=== PATIENT | male | born 1955 | race Caucasian/White ===

== ENCOUNTER 2018-01-16 21:58 | Inpatient (IN) | payer OTHER ==
[2018-01-16 22:38] LABS: Lactate 1.37 mmol/L (0.50-2.20)
[2018-01-16] MEDS ORDERED: Piperacillin/Tazobactam 3.375 GM VIAL ONE (22:41)
[2018-01-16 22:43] LABS: #Eosinphils 0.1 thou/uL (0.0-0.7); #Lymphocytes 0.4 thou/uL (1.20-3.40); #Monocytes 0.7 thou/uL (0.11-0.59); #Neutrophils 11.9 thou/uL (1.40-6.50); %Basophils 0.1 % (0.0-1.0); %Eosinophils 0.5 % (0.0-10.0); %Lymphocytes 2.9 % (21.0-51.0); %Monocytes 5.6 % (0.0-10.0); %Neutrophils 90.9 % (42.0-75.0); Hemoglobin 16.5 g/dL (14.0-18.0); Mean Corpuscular HGB CONC 34.6 g/dL (32.0-36.0); Mean Corpuscular Volume 89.8 fL (78.0-98.0); Platelet Count 234 thou/uL (130-400); RBC Distribution Width 12.3 % (11.5-14.5); White Blood Cell (WBC) Count 13.1 thou/uL (4.8-10.8)
[2018-01-16] MEDS ORDERED: MEROPENEM 1 GM/50 ML 1 GM in Premix Bag 1 BAG IVPB SCH (22:45)
[2018-01-16 23:01] LABS: ALT (SGPT) 20 U/L (8-55); AST (SGOT) 24 U/L (5-34); Albumin 4.3 g/dL (3.4-4.8); Alkaline Phosphatase 80 U/L (40-150); Anion Gap 12 mmol/L (10-20); BUN (Urea Nitrogen) 13 mg/dL (8.4-25.7); Bilirubin, Total 0.5 mg/dL (0.2-1.2); Calc. Creatinine Clearance 0 mL/min (70-130); Calcium 9.1 mg/dL (7.8-10.44); Carbon Dioxide 23 mmol/L (23-31); Chloride 102 mmol/L (98-107); Estimated GFR-MDRD 80; Glucose 105 mg/dL (80-115); Potassium 3.7 mmol/L (3.5-5.1); Protein, Total 7.3 g/dL (5.8-8.1); Sodium 133 mmol/L (136-145)
[2018-01-16 23:55] LABS: Bilirubin Negative (Negative); Blood, Urine Negative (Negative); Clarity CLEAR (Clear); Glucose, Urine (Dipstick) Negative (Negative); Leukocyte Trace (Negative); Nitrite Negative (Negative); Protein, Urine (Dipstick) Negative (Neg-Trace); Specific Gravity, Urine 1.017 (1.002-1.036); Urobilinogen 0.2 mg/dL (0.2-1.0); pH, Urine 6.5 (5.0-9.0)
[2018-01-16 23:57] LABS: Bacteria/HPF None Seen HPF (None Seen); Hyaline Casts/LPF 0-3 HYALINE CAST LPF (0-3 Hyaline); Squamous Epithelial None Seen HPF (0-3); WBC/HPF 0-3 HPF (0-3)
[2018-01-17 03:43] VITALS: BMI 26.3
[2018-01-17] MEDS ORDERED: Acetaminophen 325 MG TAB PO PRN ×2 (04:02→06:58)
[2018-01-17] MEDS ORDERED: Ondansetron ODT 4 MG TAB SL PRN (04:02)
[2018-01-17] MEDS ORDERED: Ondansetron PF 4 MG/2 ML Vial IVP PRN ×2 (04:02→06:58)
[2018-01-17] MEDS ORDERED: Sodium Chloride 0.9% 1,000 ML IV SCH (04:15)
[2018-01-17] MEDS ORDERED: Bisacodyl 10 MG SUPP PR PRN (06:58)
[2018-01-17] MEDS ORDERED: Diabetic Tussin 200 MG/10 ML UDCUP PO PRN (06:58)
[2018-01-17] MEDS ORDERED: Calcium Carbonate 500 MG ChewTAB PO PRN (06:58)
[2018-01-17] MEDS ORDERED: Bisacodyl 5 MG TAB PO PRN (06:58)
[2018-01-17] MEDS ORDERED: Loperamide HCl 2 MG CAP PO PRN (06:58)
[2018-01-17] MEDS ORDERED: Ondansetron ODT 4 MG TAB PO PRN (06:58)
[2018-01-17] MEDS ORDERED: Senokot S 8.6-50 MG TAB PO PRN (06:58)
[2018-01-17] MEDS ORDERED: hydrALAZINE 20 MG/ML VIAL SLOW IVP PRN (06:58)
[2018-01-17] MEDS ORDERED: HYDROcodone/Acetaminophen 5/325 mg Tablet PO PRN (06:58)
[2018-01-17] MEDS ORDERED: Sodium Chloride 0.65% Nasal 44 ML BOT EA NARE PRN (06:58)
[2018-01-17] MEDS ORDERED: Zolpidem Tartrate 5 MG TAB PO PRN (06:58)
[2018-01-17] MEDS ORDERED: Artificial Tears 18 DROP/0.9 ML EA EYE PRN (06:58)
[2018-01-17] MEDS ORDERED: Eucerin (Mineral Oil/Petrolatum,White) 30 gm Jar TOP PRN (06:58)
[2018-01-17] MEDS ORDERED: Cepastat Lozenges 1 LOZ PO PRN (06:58)
[2018-01-17] MEDS ORDERED: Loratadine 10 MG TAB PO PRN (06:58)
[2018-01-17] MEDS ORDERED: cefTRIAXone\\ROCEPHIN 2 GM in Sodium Chloride 0.9% 100 ML IVPB SCH (08:00)
[2018-01-17] MEDS: Saccharomyces boulardii 250 MG CAP PO SCH (08:48)
[2018-01-17] MEDS: Enoxaparin Sodium 40 MG/0.4 ML SYRINGE SC SCH (08:48)
[2018-01-17] MEDS: Famotidine 20 MG TAB PO SCH ×2 (08:48→20:52)
[2018-01-17] MEDS: Sodium Chloride 0.9% 1,000 ML IV SCH ×3 (08:50→22:51)
--- NOTE | 2018-01-17 10:53 | HP ---
PRIMARY CARE PHYSICIAN: [facility] Call Admission. REASON FOR ADMISSION: Sepsis. HISTORY OF PRESENT ILLNESS: A 63-year-old male, who had a prostate biopsy yesterday morning. The patient reports that after biopsy done, he went home around 3 p.m. Initially, he was experiencing low-grade fever, but his fever was spiking continuously and around 8 p.m., the patient was having fever with chills and that is why he called Dr. English, urologist, who advised him to come to emergency room for evaluation. In the emergency room, he was tachycardic. He was relatively hypotensive and his temperature was 101.8. He was meeting sepsis criteria and that is why the patient was admitted to medical floor. In the emergency room, the patient received Tylenol, IV fluid, meropenem, and Zosyn. This morning, the patient was still febrile. He denies any constipation, diarrhea, melena, or hematochezia. He denies any currently dysuria, increased frequency, or hesitancy. The patient reports that his prostate specific antigen was increasing and that is why Dr. English decided to do prostate biopsy. Prior to prostate biopsy, the patient denies any lower urinary tract infection symptoms including he denies any dysuria, hematuria, frequency, or hesitation. He also denies any retention. REVIEW OF SYSTEMS: CONSTITUTIONAL: Negative for weight loss or gain, ability to conduct usual activities. SKIN: Negative for rash, itching. EYES: Negative for double vision, pain. ENT/MOUTH: Negative for nose bleeding, neck stiffness, pain, tenderness. CARDIOVASCULAR: Negative for palpitations, dyspnea on exertion, orthopnea. RESPIRATORY: Negative for shortness of breath, wheezing, cough, hemoptysis, fever or night sweats. GASTROINTESTINAL: Negative for poor appetite, abdominal pain, heartburn, nausea, vomiting, constipation, or diarrhea. GENITOURINARY: Negative for urgency, frequency, dysuria, nocturia. MUSCULOSKELETAL: Negative for pain, swelling. NEUROLOGIC/PSYCHIATRIC: Negative for anxiety, depression. ALLERGY/IMMUNOLOGIC: Negative for skin rash, bleeding tendency. Please see my HPI for pertinent positives and negatives. All other review of systems reviewed and negative except as mentioned in HPI. PAST MEDICAL HISTORY: History of one time admission for cellulitis. PAST SURGICAL HISTORY: Right ankle surgery and prostate biopsy. PAST PSYCHIATRIC HISTORY: Reviewed and negative. SOCIAL HISTORY: The patient denies any tobacco, alcohol, or illicit drug abuse. FAMILY HISTORY: No family history of coronary artery disease, stroke, or cancer. ALLERGIES: CIPROFLOXACIN. CURRENT HOME MEDICATIONS: The patient is taking Prilosec p.r.n. basis. EMERGENCY ROOM COURSE: The patient has received IV fluid, meropenem, Zosyn, and Tylenol. PHYSICAL EXAMINATION: VITAL SIGNS: Currently; blood pressure 101/63, temperature 100.2, pulse 80, respiratory rate 16, and saturation 93% on room air. Weight 194 pounds. In the emergency room, he had 101.4 fever and he was tachycardic. GENERAL: The patient is currently alert and awake. No obvious acute distress. HEENT: Head, normocephalic and atraumatic. Eyes, pupils round and reactive to light. Extraocular muscle intact. ENT, oropharynx within normal limits. Moist mucous membranes. No oral lesion. No pharyngeal erythema. No exudate. NECK: Supple. No JVD. No thyromegaly. No carotid bruit. No jugular venous distention. LUNGS: Clear to auscultation without any rhonchi or rales. CARDIAC: S1 and S2 regular. No murmur. No gallop. No rub. ABDOMEN: Soft. Bowel sounds present. Nontender. Nondistended. No organomegaly. No mass. No suprapubic tenderness. BACK: Unremarkable. No CVA tenderness. EXTREMITIES: Upper extremities; passive movement of all joints is normal. Lower extremity, no edema. Good distal pulsation. SKIN: No skin rash. HEMATOLOGICAL SYSTEM: No lymphadenopathy. PSYCHIATRIC: Normal affect. NEUROLOGIC: Nonfocal examination. SIGNIFICANT LABS: CBC; WBC 13.1, hemoglobin 16.5, and platelet 234 with a left shift. BMP; sodium 133, potassium 3.7, chloride 102, carbon dioxide 23, BUN 13, creatinine 0.95, glucose 105, calcium 9.1, and lactic acid 1.5. LFT; AST 24, ALT 20, alkaline phosphatase 80, and albumin 4.3. Urinalysis suggestive of UTI. Blood culture negative so far. ASSESSMENT AND PLAN: 1. Sepsis. The patient has leukocytosis, fever, tachycardia, met sepsis criteria. Source of infection is most likely lower urinary tract secondary to recent prostate biopsy suspecting transient bacteremia. 2. Lower urinary tract infections after a prostate biopsy with possible prostatitis. We are also suspecting associated transient bacteremia based on clinical presentation. We have started Rocephin 2 g IV daily. We will follow up on urine culture results. If the patient remains afebrile for next 24 hours, then we will consider changing to oral antibiotic therapy and discharging him home soon. 3. Gastroesophageal reflux disease. We will continue Pepcid 20 mg p.o. b.i.d. 4. Deep venous thrombosis prophylaxis, Lovenox 40 mg subcu daily. Gastrointestinal prophylaxis, Pepcid 20 mg p.o. b.i.d. CODE STATUS: The patient is full code. The patient does not have any surrogate decision maker. DISPOSITION PLAN: Based on clinical course. Plan of care discussed with the patient in detail. Job ID: [id number]
[2018-01-17] MEDS ORDERED: Meropenem 1 GM in Sodium Chloride 0.9% 100 ML IVPB SCH (22:00)
--- NOTE | 2018-01-17 22:24 | CON ---
DATE OF CONSULTATION: 01/17/2018 Consulting is [facility]. Consulted is Dr. English. REASON FOR CONSULTATION: Prostatitis after biopsy. HISTORY OF PRESENT ILLNESS: Mr. Bashir is a 63-year-old white male with an elevated PSA, who initially came to me for this reason. We did a prostate biopsy on him yesterday, which went uneventfully. He was covered prophylactically with Bactrim DS 1 tab 2 hours before the procedure and ceftriaxone 1000 mg at the time of his biopsy. The biopsy was uneventful and he went home. That evening, he called me and stated that he was running a fever of 102 and did not feel well. I recommended he proceed directly to the ER where, when he arrived, he was hypotensive, tachycardic, and still had a 102 fever. He was given meropenem and Zosyn in the emergency room and admitted to the Medicine Service. They have subsequently switched him to ceftriaxone and he is definitely showing improvement with defervescence of his fevers, decreased tachycardia, and he subjectively is feeling well. Thus far, his cultures have not grown anything but are currently proceeding. ALLERGIES: CIPROFLOXACIN AND FLUOROQUINOLONES. HOME MEDICATIONS: Prilosec. PAST MEDICAL HISTORY: 1. History of cellulitis. 2. Elevated PSA. 3. Dyspepsia. PAST SURGICAL HISTORY: 1. Right ankle surgery. 2. Recent prostate biopsy. FAMILY HISTORY: No significant history of prostate cancer. Denies any cardiovascular disease in the family. SOCIAL HISTORY: The patient denies tobacco, alcohol, or illicit drug use. REVIEW OF SYSTEMS: A 12-point review of system was reviewed and currently negative. The patient is no longer feeling bad. He denies any bloody stools, nausea, vomiting, chest pain, shortness of breath, fevers, or malaise. The remainder of 12-point review of systems are reviewed and negative. PHYSICAL EXAMINATION: VITAL SIGNS: Temperature 98.5, pulse 69, respirations 18, blood pressure 107/67, saturation 97% on room air. GENERAL: No apparent distress. Communicating and alert. Well nourished, well developed, appears stated age. HEENT: Normocephalic, atraumatic. Sclerae nonicteric. Pupils symmetric and round. Trachea midline. Moist mucous membranes. CARDIOVASCULAR: Regular rate and rhythm. Normal S1 and S2. Symmetric pulses. CHEST: No increased work of breathing. Normal shape chest. Symmetric expansion. LUNGS: Clear anteriorly. ABDOMEN: Soft, nontender, nondistended. No organomegaly. Positive bowel sounds. No rebound, guarding, or peritoneal signs. No suprapubic tenderness. : Nonfocal penis. Bilaterally descended testicles without tenderness. RECTAL: Deferred at this time given the patient's current diagnosis of prostatitis. EXTREMITIES: No clubbing, cyanosis, or edema. MUSCULOSKELETAL: No joint deformities or joint erythema noted. SKIN: Warm and dry. No rashes or lesions. Good turgor. PSYCHIATRIC: Alert and oriented x3. Appropriate mood and affect. LABORATORY DATA: On laboratory evaluation, a full set of labs are in the [facility], which I have reviewed. Of note, the patient's white count 13.1 with a hemoglobin of 16.5. Creatinine is currently 0.95 with a sodium of 133. Urinalysis demonstrates trace ketones and trace leukocyte esterase with 4-6 red blood cells. Urine culture has currently no growth at 12 hours. Blood cultures are negative x2. ASSESSMENT AND PLAN: 63-year-old white male with elevated PSA, status post recent prostate biopsy with signs of sepsis, likely stemming from prostatitis despite coverage with ceftriaxone and Bactrim. He is currently on ceftriaxone. I have spoken with Dr. Pro in consultation, who stated that the patient may have ESBL E coli and recommended that he be switched back to a carbapenem. He recommended meropenem, which I will change the patient's antibiotics to. We will await final cultures and Dr. Pro states he will consult with the patient to determine the best long-term course of antibiotics for the patient to be discharged on. He may have to get a PICC line or may be switched to a different oral regimen. From my standpoint, I do recommend that the patient be treated for at least 2-4 weeks for bacterial prostatitis. Dr. Pro may adjust the course accordingly based on what his recommendations are. The patient already has scheduled followup with me for biopsy results. I think he can be discharged once he has a antibiotic plan and has no fevers for 24 hours with cultures finalized. Job ID: [id number]
[2018-01-17] MEDS: MEROPENEM 1 GM/50 ML 1 GM in Premix Bag 1 BAG IVPB SCH (22:50)
[2018-01-18 06:13] LABS: #Eosinphils 0.4 thou/uL (0.0-0.7); #Lymphocytes 1.5 thou/uL (1.20-3.40); #Monocytes 0.7 thou/uL (0.11-0.59); #Neutrophils 4.2 thou/uL (1.40-6.50); %Basophils 0.6 % (0.0-1.0); %Eosinophils 5.2 % (0.0-10.0); %Lymphocytes 21.9 % (21.0-51.0); %Monocytes 10.8 % (0.0-10.0); %Neutrophils 61.5 % (42.0-75.0); Hemoglobin 13.7 g/dL (14.0-18.0); Mean Corpuscular HGB CONC 32.6 g/dL (32.0-36.0); Mean Corpuscular Hemoglobin 29.7 pg (27.0-31.0); Mean Corpuscular Volume 91.2 fL (78.0-98.0); Mean Platelet Volume 7.2 fL (7.4-10.4); Platelet Count 194 thou/uL (130-400); RBC Distribution Width 12.3 % (11.5-14.5); White Blood Cell (WBC) Count 6.8 thou/uL (4.8-10.8)
[2018-01-18] MEDS: MEROPENEM 1 GM/50 ML 1 GM in Premix Bag 1 BAG IVPB SCH ×3 (06:23→21:02)
[2018-01-18] MEDS: Sodium Chloride 0.9% 1,000 ML IV SCH (06:25)
[2018-01-18 06:27] LABS: ALT (SGPT) 14 U/L (8-55); AST (SGOT) 17 U/L (5-34); Albumin 3.4 g/dL (3.4-4.8); Alkaline Phosphatase 54 U/L (40-150); Anion Gap 9 mmol/L (10-20); BUN (Urea Nitrogen) 9 mg/dL (8.4-25.7); Bilirubin, Total 0.4 mg/dL (0.2-1.2); Calc. Creatinine Clearance 121 mL/min (70-130); Calcium 8.4 mg/dL (7.8-10.44); Carbon Dioxide 22 mmol/L (23-31); Chloride 110 mmol/L (98-107); Estimated GFR-MDRD Greater than 90; Globulin 2.5 g/dL (2.4-3.5); Glucose 94 mg/dL (80-115); Protein, Total 5.9 g/dL (5.8-8.1); Sodium 137 mmol/L (136-145)
[2018-01-18] MEDS: Enoxaparin Sodium 40 MG/0.4 ML SYRINGE SC SCH (08:56)
[2018-01-18] MEDS: Saccharomyces boulardii 250 MG CAP PO SCH (08:57)
[2018-01-18] MEDS: Famotidine 20 MG TAB PO SCH ×2 (08:57→21:02)
--- NOTE | 2018-01-18 10:56 | PDOC.PN ---
- Subjective Encounter Start Date: 01/18/18 Encounter Start Time: 08:45 -: old records requested/rev Patient seen and examined. No new complaints. No overnight events - Objective Resuscitation Status - Order Detail: 01/17/18 06:58 Resuscitation Status Routine Resuscitation Status: FULL: Full Resuscitation MAR Reviewed: Yes Vital Signs & Weight: Vital Signs (12 hours) Temp Pulse Resp BP Pulse Ox 01/18/18 08:52 97 01/18/18 07:55 97.6 F 61 16 126/79 97 01/18/18 04:00 98.1 F 63 23 H 115/70 96 01/18/18 00:00 99 F 75 19 112/65 95 Weight Weight 194 lb 0.108 oz I&O: 01/17/18 01/18/18 01/19/18 06:59 06:59 06:59 Intake Total 2797 Balance 2797 Result Diagrams: 01/18/18 05:25 01/18/18 05:25 Phys Exam - Physical Examination Constitutional: NAD HEENT: PERRLA, moist MMs, sclera anicteric, oral pharynx no lesions Neck: no JVD, supple Respiratory: no wheezing, no rales, no rhonchi Cardiovascular: RRR, no significant murmur, no rub Gastrointestinal: soft, non-tender, no distention, positive bowel sounds Musculoskeletal: no edema, pulses present Neurological: non-focal, normal sensation, moves all 4 limbs Lymphatic: no nodes Psychiatric: normal affect, A&O x 3 Skin: no rash, normal turgor Dx/Plan (1) H/O prostate biopsy Code(s): Z98.890 - OTHER SPECIFIED POSTPROCEDURAL STATES Status: Acute (2) Sepsis Code(s): A41.9 - SEPSIS, UNSPECIFIED ORGANISM Status: Acute (3) UTI (urinary tract infection) Status: Acute - Plan cont current plan of care, continue antibiotics * continue meropenam * DC IVF * follow on culture result * medication reviewed as below * symptomatic treatment. Review of Systems - Review of Systems ENT: negative: Ear Pain, Ear Discharge, Nose Pain, Nose Discharge, Nose Congestion, Mouth Pain, Mouth Swelling, Throat Pain, Throat Swelling, Other Respiratory: negative: Cough, Dry, Shortness of Breath, Hemoptysis, SOB with Excertion, Pleuritic Pain, Sputum, Wheezing Cardiovascular: negative: chest pain, palpitations, orthopnea, paroxysmal nocturnal dyspnea, edema, light headedness, other Gastrointestinal: negative: Nausea, Vomiting, Abdominal Pain, Diarrhea, Constipation, Melena, Hematochezia, Other Genitourinary: negative: Dysuria, Frequency, Incontinence, Hematuria, Retention , Other Musculoskeletal: negative: Neck Pain, Shoulder Pain, Arm Pain, Back Pain, Hand Pain, Leg Pain, Foot Pain, Other Skin: negative: Rash, Lesions, Isiah, Bruising, Other - Medications/Allergies Allergies/Adverse Reactions: Allergies Allergy/AdvReac Type Severity Reaction Status Date / Time ciprofloxacin [From Cipro] Allergy Verified 01/17/18 03:44 Medications: Current Medications Acetaminophen (Tylenol) 650 mg PO Q4H PRN PRN Reason: Headache/Fever/Mild Pain (1-3) Hydrocodone Bitart/Acetaminophen ([place] 5/325) 1 tab PO Q4H PRN PRN Reason: Moderate Pain (4-6) Artificial Tears (Tears Naturale) 2 drop EA EYE PRN PRN PRN Reason: Dry Eyes Bisacodyl (Dulcolax) 10 mg PO DAILYPRN PRN PRN Reason: Constipation Bisacodyl (Dulcolax) 10 mg [place] DAILYPRN PRN PRN Reason: Constipation Calcium Carbonate (Tums) 1,000 mg PO Q4H PRN PRN Reason: Heartburn or Indigestion Enoxaparin Sodium (Lovenox) 40 mg SC 0900 [facility] Last Admin: 01/18/18 08:56 Dose: 40 mg Famotidine (Pepcid) 20 mg PO BID [facility] Last Admin: 01/18/18 08:57 Dose: 20 mg Guaifenesin (Robitussin Sf) 200 mg PO Q4H PRN PRN Reason: Cough Hydralazine HCl (Apresoline) 10 mg SLOW IVP Q4H PRN PRN Reason: SBP > 180 and HR < 70 Sodium Chloride (Normal Saline 0.9%) 1,000 mls @ 125 mls/hr IV .Q8H [facility] Last Admin: 01/18/18 06:25 Dose: 1,000 mls Meropenem 1 gm/ Device 50 mls @ 100 mls/hr IVPB Q8HR [facility] Last Admin: 01/18/18 06:23 Dose: 50 mls Loperamide HCl (Imodium) 2 mg PO PRN PRN PRN Reason: Diarrhea/Loose Stools Loratadine (Claritin) 10 mg PO DAILYPRN PRN PRN Reason: Sinus Symptoms Mineral Oil/White Petrolatum (Eucerin Cream) 0 gm TOP BIDPRN PRN PRN Reason: Dry Skin Ondansetron HCl (Zofran Odt) 4 mg PO Q6H PRN PRN Reason: Nausea/Vomiting Ondansetron HCl (Zofran) 4 mg IVP Q6H PRN PRN Reason: Nausea/Vomiting Saccharomyces Boulardii (Florastor) 250 mg PO DAILY [facility] Last Admin: 01/18/18 08:57 Dose: 250 mg Senna/Docusate Sodium (Senokot S) 2 tab PO BID PRN PRN Reason: Constipation Sodium Chloride (Alvin Nasal [place] 0.65%) 0 ml EA NARE QIDPRN PRN PRN Reason: Nasal Congestion Throat Lozenges (Cepastat Lozenges) 1 emelyn PO Q2H PRN PRN Reason: Sore Throat Zolpidem Tartrate (Ambien) 5 mg PO HSPRN PRN PRN Reason: Insomnia
[2018-01-19 04:11] VITALS: TEMP 98.2
[2018-01-19] MEDS: MEROPENEM 1 GM/50 ML 1 GM in Premix Bag 1 BAG IVPB SCH (05:32)
[2018-01-19 08:09] VITALS: BP 125/80
[2018-01-19] MEDS: Enoxaparin Sodium 40 MG/0.4 ML SYRINGE SC SCH (08:12)
[2018-01-19] MEDS: Famotidine 20 MG TAB PO SCH (08:12)
[2018-01-19] MEDS: Saccharomyces boulardii 250 MG CAP PO SCH (08:12)
--- NOTE | 2018-01-19 10:52 | DIS ---
DATE OF ADMISSION: 01/17/2018 DATE OF DISCHARGE: 01/19/2018 PRIMARY CARE PHYSICIAN: [facility] call admission. DISCHARGE DISPOSITION: Home. PRIMARY DISCHARGE DIAGNOSIS: Sepsis due to urinary tract infection after prostate biopsy. SECONDARY DISCHARGE DIAGNOSIS: Gastroesophageal reflux disease. PRIMARY PROCEDURE/OPERATION: None. RADIOLOGICAL INVESTIGATION: None. SIGNIFICANT LABS: WBC 6.8, hemoglobin 13.7, platelets 194. Sodium 137, potassium 4.0, BUN 9, creatinine 0.79. LFT normal. Lactic acid 1.5. Urinalysis suggestive of UTI. Blood and urine culture negative. DISCHARGE MEDICATIONS: 1. Omeprazole 10 mg p.o. daily. 2. Bactrim DS one tablet twice daily for 10 days. CONTRAINDICATION: None. CODE STATUS: Full code. INPATIENT ACCOUNTING MACHINE OPERATOR: Dr. Egnlish was following while in hospital. TEST RESULTS PENDING ON DISCHARGE: None. ALLERGIES: CIPROFLOXACIN. DISCHARGE PLAN: Post hospital, the patient will follow up with Dr. English as instructed. HOSPITAL COURSE: A 63-year-old male with above-mentioned medical problems, who had a prostate biopsy done by Dr. English on the day of admission. After going home from procedure, he was having low-grade fever, which was gradually gotten worse with chills and that is why the patient called Dr. English, who advised him to go to emergency room. In the emergency room, the patient was meeting sepsis and SIRS criteria. He was admitted to medical floor. He was treated with broad-spectrum antibiotic therapy with meropenem. He was also given IV fluid. He remained afebrile while in hospital. His cultures remain negative. We changed to Bactrim DS upon discharge. The patient will follow up with Dr. English as an outpatient basis. While in the hospital, he remained hemodynamically stable, afebrile, and tolerating p.o. well, and ambulatory. The patient is seen and examined at bedside today. PHYSICAL EXAMINATION: VITAL SIGNS: Currently, temperature 98.2, pulse 63, respiratory rate 18, saturation 97% on room air, blood pressure 125/80, weight 194 pounds. GENERAL: The patient is currently alert, awake, no acute distress. HEENT: Head; normocephalic, atraumatic. Eyes; pupils round, reactive to light. Extraocular muscle intact. ENT; oropharynx within normal limits. Moist mucous membranes. No oral lesion. No pharyngeal erythema. No exudate. NECK: Supple. No JVD. No thyromegaly. No carotid bruit. LUNGS: Clear. CARDIAC: S1 and S2, regular without any murmur. ABDOMEN: Soft and benign. EXTREMITIES: No edema. NEUROLOGIC: Nonfocal examination. All review of systems reviewed and negative. New medication prescription sent to pharmacy. Job ID: [id number]
== END 2018-01-19 10:50 | disposition home or self-care (01) | DRG 862 ==
LOC: ERS 21:58 → ERHOLD 01-17 00:52 → SJJU 01-17 03:45
PROVIDERS: ADMIT Hospitalist; ATTEND Hospitalist
DX: T81.44XA Sepsis following a procedure, initial encounter (principal); A41.9 Sepsis, unspecified organism; N39.0 Urinary tract infection, site not specified; N41.9 Inflammatory disease of prostate, unspecified; K21.9 Gastro-esophageal reflux disease without esophagitis
CPT/HCPCS: 36415; 80053; 81001; 81003; 81015; 83605; 85025; 87040; 87086; 96365; 96367; J0696; J1650; J2185; J2543; J7050

== ENCOUNTER 2018-01-20 12:13 | Emergency (ER) | payer OTHER ==
[2018-01-20 13:15] LABS: Bilirubin Negative (Negative); Blood, Urine Negative (Negative); Clarity CLEAR (Clear); Glucose, Urine (Dipstick) Negative (Negative); Leukocyte Trace (Negative); Nitrite Negative (Negative); Protein, Urine (Dipstick) Negative (Neg-Trace); Specific Gravity, Urine 1.022 (1.002-1.036); Urobilinogen 0.2 mg/dL (0.2-1.0)
[2018-01-20 13:18] LABS: Bacteria/HPF None Seen HPF (None Seen); Hyaline Casts/LPF 0-3 HYALINE CAST LPF (0-3 Hyaline); RBC/HPF 0-3 HPF (0-3); Squamous Epithelial 0-3 HPF (0-3)
[2018-01-20 13:54] LABS: #Eosinphils 0.1 thou/uL (0.0-0.7); #Lymphocytes 0.7 thou/uL (1.20-3.40); #Monocytes 0.5 thou/uL (0.11-0.59); #Neutrophils 7.4 thou/uL (1.40-6.50); %Basophils 0.3 % (0.0-1.0); %Eosinophils 1.1 % (0.0-10.0); %Lymphocytes 7.8 % (21.0-51.0); %Neutrophils 84.8 % (42.0-75.0); Hemoglobin 15.6 g/dL (14.0-18.0); Mean Corpuscular HGB CONC 32.9 g/dL (32.0-36.0); Mean Corpuscular Hemoglobin 30.1 pg (27.0-31.0); Mean Corpuscular Volume 91.5 fL (78.0-98.0); Mean Platelet Volume 6.7 fL (7.4-10.4); Platelet Count 242 thou/uL (130-400); RBC Distribution Width 12.3 % (11.5-14.5); Red Blood Cell (RBC) Count 5.19 mill/uL (4.70-6.10); White Blood Cell (WBC) Count 8.7 thou/uL (4.8-10.8)
[2018-01-20 14:15] LABS: ALT (SGPT) 16 U/L (8-55); AST (SGOT) 17 U/L (5-34); Albumin 3.9 g/dL (3.4-4.8); Alkaline Phosphatase 59 U/L (40-150); Anion Gap 14 mmol/L (10-20); BUN (Urea Nitrogen) 11 mg/dL (8.4-25.7); Bilirubin, Total 0.7 mg/dL (0.2-1.2); Calc. Creatinine Clearance 0 mL/min (70-130); Calcium 9.1 mg/dL (7.8-10.44); Carbon Dioxide 21 mmol/L (23-31); Chloride 104 mmol/L (98-107); Estimated GFR-MDRD 86; Globulin 2.9 g/dL (2.4-3.5); Glucose 102 mg/dL (80-115); Potassium 4.5 mmol/L (3.5-5.1); Protein, Total 6.8 g/dL (5.8-8.1); Sodium 134 mmol/L (136-145)
== END 2018-01-20 14:29 | disposition home or self-care (01) ==
LOC: ERS 12:13
DX: R50.9 Fever, unspecified (principal); R51 Headache; Z79.899 Other long term (current) drug therapy
CPT/HCPCS: 36415; 80053; 81003; 81015; 83605; 85025; 87086; 99283

== ENCOUNTER 2018-08-08 09:08 | Outpatient (CLI) | payer OTHER ==
[2018-08-08 10:25] LABS: Estimated GFR-MDRD - POC Greater than 90
--- NOTE | 2018-08-08 11:22 | MRI ---
EXAM: MRI of the pelvis/prostate without and with contrast HISTORY: elevated PSA COMPARISON: None TECHNIQUE: Multiplanar multisequence MR images were obtained of the pelvis without and with IV contra st. Evaluation of this exam was performed with a [employer] workstation. FINDINGS: Central gland: Mild hypertrophy of the central gland consistent with BPH. No suspicious low T2 signal lesion is seen. Peripheral zone: No restricted diffusion is seen. No low signal on ADC map. Seminal vesicles: Intact without abnormality Neurovascular bundles: Intact Pelvic lymph nodes: No pelvic adenopathy Other visualized intrapelvic structures: Unremarkable Osseous structures: No marrow signal abnormality IMPRESSION: PI-RADS Category 2-low likelihood that a clinically significant cancer is present.
== END 2018-08-08 09:09 | disposition home or self-care (01) ==
LOC: TBSIIMAG 09:08
PROVIDERS: ATTEND Urology
DX: R97.20 Elevated prostate specific antigen [PSA] (principal)
CPT/HCPCS: 72197; 82565

== ENCOUNTER 2024-12-23 12:29 | Outpatient (CLI) | payer MEDICARE | END 2024-12-23 12:30 | disposition home or self-care (01) | LOC: BICMRI 12:29 | PROVIDERS: ATTEND Nurse Practitioner Family | DX: M25.562 Pain in left knee (principal); G89.29 Other chronic pain; S83.242A Other tear of medial meniscus, current injury, left knee, initial encounter; M94.262 Chondromalacia, left knee; M17.12 Unilateral primary osteoarthritis, left knee ==